=== PATIENT | female | born 1935 | race Caucasian/White ===

== ENCOUNTER 2016-07-04 10:23 | Inpatient (IN) | payer OTHER, BC ==
[2016-06-09 12:05] VITALS: BMI 26.0
--- NOTE | 2016-06-09 12:33 | PAT Medication Instructions ---
Service Date Jun 09, 2016. Current Home Medication List Ascorbic Acid (Vitamin C), 1 TAB PO QAM Hydrochlorothiazide (Hydrochlorothiazide), 1 TAB PO MON & THURS Lisinopril (Prinivil), 10 MG PO QAM Metoprolol Succ (Toprol Xl) (Toprol-Xl ), 100 MG PO QAM Rosuvastatin Calcium (Crestor), 5 MG PO QPM Medication Instructions For Your Scheduled Surgery - Hold the following medications the morning of surgery: Lisinopril (Prinivil), 10 MG PO QAM Hydrochlorothiazide (Hydrochlorothiazide), 1 TAB PO MON & THURS Ascorbic Acid (Vitamin C), 1 TAB PO QAM - Take the following medications the morning of surgery with a sip of water: Metoprolol Succ (Toprol Xl) (Toprol-Xl ), 100 MG PO QAM - Take the following medications as scheduled the night before surgery: Rosuvastatin Calcium (Crestor), 5 MG PO QPM If you have any questions please call us at [phone] or [phone] ( Danielle) or [phone]
[2016-06-09 13:14] LABS: BASO % 0.3 %; BASO ABS # 0.02 K/uL (0-0.2); COMPLETE YES; EOS % 0.8 %; HEMATOCRIT 40.2 % (37-47); LYMPH % 25.8 %; LYMPH ABS # 1.53 K/uL (1.2-3.4); MEAN CELL VOLUME 95.3 fL (80-100); MEAN CORPUSCULAR HEMOGLOBIN 32.2 pg (25-34); MEAN CORPUSCULAR HGB CONC 33.8 g/dl (32-36); MONO % 9.9 %; NEUT % 63.2 %; PLATELET COUNT 139 K/uL (130-400); RED BLOOD COUNT 4.22 M/uL (4.2-5.4); WHITE BLOOD COUNT 5.94 K/uL (4.8-10.8)
--- NOTE | 2016-06-09 13:15 | DIAGNOSTIC IMAGING REPORT ---
CHEST PREADMISSION(PA/LAT) CLINICAL HISTORY: PAT preoperative evaluation COMPARISON STUDY: No previous studies for comparison. FINDINGS: The bones soft tissues and hemidiaphragms are normal. The cardiomediastinal silhouette is normal. The lungs are clear. The pulmonary vasculature is normal. IMPRESSION: Negative chest. Electronically signed by: Marco A Anguiano M.D. 06/09/2016 1:13 PM Dictated Date/Time: 06/09/2016 1:13 PM
[2016-06-09 13:20] LABS: URINE APPEARANCE CLEAR (CLEAR); URINE BILIRUBIN NEG (NEG); URINE COLOR YELLOW; URINE NITRITE NEG (NEG); URINE SPECIFIC GRAVITY 1.019 (1.000-1.030); UROBILINOGEN NEG (NEG); ZZUR CULT IF INDIC CLEAN CATCH NO
[2016-06-09 13:24] LABS: PARTIAL THROMBOPLASTIN RATIO 1.1; PROTHROMBIN TIME (PATIENT) 10.4 SECONDS (9.0-12.0)
[2016-06-09 13:29] LABS: MANUAL MICROSCOPIC REQUIRED? NO; REVIEW REQ? NO
[2016-06-09 13:30] LABS: CALCIUM 9.4 mg/dl (8.5-10.1)
[2016-06-09 13:34] LABS: BUN/CREATININE RATIO 21.6 (10-20); CREATININE 0.74 mg/dl (0.60-1.20); POTASSIUM 4.1 mmol/L (3.5-5.1)
[2016-07-04] VITALS (7 sets, daily range): BP systolic 98–173; BP diastolic 56–82; PULSE 50–73; TEMP 36.4–36.7; O2SAT 93–100; Ht 170.2 cm; Wt 76.9 kg
[~2016-07-04] VITALS: Ht 170.2 cm; Wt 76.9 kg
[~2016-07-04 10:23] MED LIST: ACETAMINOPHEN 500 MG TAB PO SCH; ASCA500 PO; BUPIVACAINE 0.5 % 5 MG/1 ML PF 10ML VIAL ONE; CEFAZOLIN 2000 MG/60 ML D5W 60 ML IV SCH; CeleBREX 200 MG CAP PO SCH; DEXAMETHASONE 4 MG TAB PO SCH; FAMOTIDINE 20 MG TAB PO SCH; GABAPENTIN 300 MG CAP PO SCH; HYDR12.55 PO; LACTATED RINGER'S 1000ML 1,000 ML IV SCH; LACTATED RINGER'S 1000ML 500 ML IV ONE; LACTATED RINGER'S 1000ML IV SCH; LACTATED RINGER'S 500 ML IV SCH; LISI10TA PO; METO100T44 PO; METOCLOPRAMIDE HCL 10 MG TAB PO SCH; OXYCODONE HCL 10 MG TABCR (OXYCONTIN) PO SCH; POLYMYXIN B SULFATE 100,000 UNITS in NSS 100ML IR SCH; ROPIVACAINE 5MG/ML 30 ML 150 MG, BUPIVACAINE/EPINEPHR 0.5% MPF 30 ML, KETOROLAC TROMETH... INFIL SCH; ROSU5TAB PO; TRANEXAMIC ACID INJ 1,000 MG in SODIUM CHLORIDE 0.9% 100ML 100 ML IV SCH; VANCOMYCIN INJ 400 MG in NSS 100ML IR SCH
--- NOTE | 2016-07-04 11:29 | History and Physical ---
History & Physical Date July 04, 2016. Chief Complaint 80 year old female with a 6 year history of right knee pain. Rates pain 5/10 at worst. She is having more trouble with instability and lack of function rather than pain. She has had multiple injections, HEP, and Tylenol over the years that no longer provides relief. She has failed conservative treatment and is scheduled for right TKA. History of Present Illness The patient is a 80 year old female with complaints of a 6 year history of right knee pain. Rates pain 5/10 at worst. She is having more trouble with instability and lack of function rather than pain. She has had multiple injections, HEP, and Tylenol over the years that no longer provides relief. She has failed conservative treatment and is scheduled for right TKA. Past Medical/Surgical History HTN HYPERCHOLESTEROLEMIA ACID REFLUX OA HO BRCA DENIES CAD, DM, DVT Additional History Hepatic Disease: No Endocrine Disorder: No Kidney Disease: No Hypertension: Yes Heart Disease: No Bleeding Tendencies: No Infectious Diseases: No Allergies Coded Allergies: Lobster (Verified Allergy, Severe, anaphylactic per PCP note , 07/04/16) Shrimp (Verified Allergy, Severe, anaphylactic per PCP note , 07/04/16) Ezetimibe (Verified Adverse Reaction, Mild, diarrhea per PCP note , ) Simvastatin (Verified Adverse Reaction, Mild, myalgia per PCP note , ) Home Medications Scheduled Ascorbic Acid (Vitamin C), 1 TAB PO QAM Hydrochlorothiazide (Hydrochlorothiazide), 1 TAB PO MON & THURS Lisinopril (Prinivil), 10 MG PO QAM Metoprolol Succ (Toprol Xl) (Toprol-Xl ), 100 MG PO QAM Rosuvastatin Calcium (Crestor), 5 MG PO QPM Physical Examination Skin: warm/dry, no rash Eyes: normal inspection, EOMI, sclerae normal ENT: normal ENT inspection, pharynx normal Head: normocephalic, atraumatic Neck: supple, no adenopathy, trachea midline Respiratory/Chest: lungs clear, normal breath sounds, no respiratory distress Cardiovascular: regular rate, rhythm, no edema, no murmur Abdomen / GI: normal bowel sounds, non tender Back: normal inspection Extremities: normal inspection, normal range of motion, + pertinent finding ( MILD EFFUSION. NO DISTAL EDEMA. ROM 0-115, +1 LAXITY) Neurologic/Psych: no motor/sensory deficits, alert, normal reflexes, oriented x 3 Diagnosis DJD RIGHT KNEE Plan of Treatment PATIENT IS SCHEDULED TO PROCEED WITH RIGHT TKA WITH DR.C KAUFMAN. WILL PLAN ON [facility] HOME PHYSICAL THERAPY UPON DISCHARGE AND ASA 81 FOR DVT PROPHYLAXIS
[2016-07-04] MEDS ORDERED: MIDAZOLAM HCL 1 MG/ML 2ML VIAL ONE (11:49)
[2016-07-04] MEDS ORDERED: PROPOFOL IV EMULSION 10 MG/ML 20 ML VIAL IV ONE (11:49)
[2016-07-04] MEDS ORDERED: LIDOCAINE HCL 2% 2 ML VIAL (20MG/ML) ONE (11:49)
--- NOTE | 2016-07-04 12:12 | History & Physical Bridge Note ---
H&P Re-Evaluation Bridge Note: I have examined the patient, reviewed the History & Physical and in the interval since the performance of the History & Physical I have noted the following changes of clinical significance: No changes noted
[2016-07-04] MEDS ORDERED: FENTANYL CITRATE INJ 50 MCG/1 ML 2 ML VIAL IV PRN (12:15)
[2016-07-04] MEDS ORDERED: ATROPINE SULFATE 0.1 MG/ML 5ML SYR IV PRN (12:15)
[2016-07-04] MEDS ORDERED: EpHEDrine SULFATE INJ 50 MG/ML AMP IV PRN (12:15)
[2016-07-04] MEDS ORDERED: ONDANSETRON INJ 2 MG/ML 2 ML VIAL IV PRN ×2 (12:15→14:45)
[2016-07-04] MEDS ORDERED: ORTHO JOINT ANESTHETIC ONE (12:57)
[2016-07-04] MEDS ORDERED: BACITRACIN 50000 UNIT VIAL ONE (12:58)
[2016-07-04] MEDS ORDERED: POVIDONE-IODINE OP SOLN 30 ML BTL ONE (12:58)
[2016-07-04] MEDS ORDERED: BUPIVACAINE/EPINEPHRINE 0.25% 1:200,000 30 ML VIAL ONE (12:58)
[2016-07-04] MEDS: TRANEXAMIC ACID INJ 1,000 MG in SODIUM CHLORIDE 0.9% 100ML 100 ML IV SCH ×2 (13:03→17:14)
--- NOTE | 2016-07-04 14:38 | [facility] Post Operative Brief Note ---
Immediate Operative Summary Operative Date July 04, 2016. Pre-Operative Diagnosis Right knee degenerative joint disease Post-Operative Diagnosis same Procedure(s) Performed Right total knee arthroplasty, cemented Surgeon Dr. Rudy Bermudez Composite Science Teacher Surgeon(s) Luis Crespo PA-C Estimated Blood Loss 75 ML Findings DJD Specimens a. Right knee bone and tissue Complication(s) None Disposition Recovery Room / PACU
[2016-07-04] MEDS ORDERED: OXYCODONE HCL IR 5 MG TAB (IMMEDIATE RELEASE) PO PRN (14:45)
[2016-07-04] MEDS ORDERED: ALUMINUM/MAGNESIUM/SIMETH (MAALOX MAX) 30 ML UDC PO PRN (14:45)
[2016-07-04] MEDS ORDERED: KETOROLAC TROMETHAMINE 15 MG/ML VIAL IV. PRN (14:45)
[2016-07-04] MEDS ORDERED: ZOLPIDEM TARTRATE 5 MG TAB PO PRN (14:45)
[2016-07-04] MEDS ORDERED: SOD PHOSPHATE/SOD BIPHOSPHATE ENEMA 132 ML BTL PR PRN (14:45)
[2016-07-04] MEDS ORDERED: BISACODYL 10 MG SUPP PR PRN (14:45)
[2016-07-04] MEDS ORDERED: MAGNESIUM HYDROXIDE SUSP 30 ML UDC PO PRN (14:45)
[2016-07-04] MEDS ORDERED: DiphenhydrAMINE HCL 50 MG/ML VIAL IV PRN (14:45)
[2016-07-04] MEDS ORDERED: METOCLOPRAMIDE HCL INJ 5 MG/ML 2 ML VIAL IV PRN (14:45)
[2016-07-04] MEDS ORDERED: TRAMADOL HCL 50 MG TAB PO PRN (14:45)
[2016-07-04] MEDS ORDERED: MoRPHine SULFATE 2 MG/ML CARP IV PRN (14:45)
--- NOTE | 2016-07-04 15:30 | DIAGNOSTIC IMAGING REPORT ---
RIGHT KNEE 1 OR 2 VIEWS ROUTINE CLINICAL HISTORY: AP/LATERAL IN PACU RIGHT KNEE Right postoperative evaluation COMPARISON: None. DISCUSSION: Total right knee replacement. Prosthetic is in good position. Expected soft tissue postoperative change. Surgical drains are in position. IMPRESSION: Anatomic alignment status post total right knee replacement. Electronically signed by: Marco A Anguiano M.D. 07/04/2016 3:29 PM Dictated Date/Time: 07/04/2016 3:28 PM
--- NOTE | 2016-07-04 15:34 | Anesthesiology Progress Note ---
Anesthesia Post Op Note Date & Time July 04, 2016 at 15:34 Vital Signs Pain Intensity: 0 Vital Signs Past 12 Hours Date Time Temp Pulse Resp B/P Pulse Ox O2 Delivery O2 Flow Rate FiO2 07/04/16 15:25 53 14 119/59 97 Nasal Cannula 4 07/04/16 15:15 55 14 114/59 96 Nasal Cannula 4 07/04/16 15:10 37.1 57 14 114/60 97 Nasal Cannula 4 07/04/16 10:57 36.5 73 16 173/82 96 Room Air Notes Mental Status: alert / awake / arousable, participated in evaluation Pt Amnestic to Procedure: Yes Nausea / Vomiting: adequately controlled Pain: adequately controlled Airway Patency, RR, SpO2: stable & adequate BP & HR: stable & adequate Hydration State: stable & adequate Neuraxial Anesthesia: was administered, sensory block is resolving Anesthetic Complications: no major complications apparent
--- NOTE | 2016-07-04 16:49 | OPERATIVE REPORT ---
DATE OF OPERATION: 07/04/2016 PREOPERATIVE DIAGNOSIS: Degenerative arthritis, right knee. POSTOPERATIVE DIAGNOSIS: Same. PROCEDURE: Right total knee with patient matched implant. SURGEON: Dr. Bermudez. BUILDING ILLUMINATING ENGINEER: MARITO Cobos. ANESTHESIA: Spinal. BLOOD LOSS: 75 mL. REPLACEMENT FLUIDS: 1800 mL of crystalloid. DRAINS: Hemovac x2. CULTURES: None. COMPLICATIONS: None. COMPONENTS USED: [employer] Knee System: Femur size 5, tibia size 4 x 10, patella size 35. NOTE: Luis Baird was present and assisted throughout due to the complicated nature of this case. He helped with preparation and set up, first assisted throughout and personally closed the capsule, subcutaneous and skin layers and applied the postoperative dressing. DESCRIPTION: Following satisfactory spinal, the patient was supine. A tourniquet was placed but not inflated. The lower extremity was prepared with ChloraPrep and draped sterilely. Following a surgical time-out, a midline incision was made with a median parapatellar arthrotomy. The knee showed grade 4 changes throughout, but most severe in the medial compartment. The cruciate ligaments were excised. The patient matched femoral block was applied. Femoral distal rotation and resection were set and completed. The 4-in-1 block was used to finish preparation of the femur. The patient matched tibial block was applied. Tibial resection was completed. Patella was freehand cut and soft tissue balancing was completed. A trial reduction with the above-mentioned components showed good tensioning stability on the collateral ligaments, stable range of motion, and the patella tracked well. The trial components were removed, the capsule was prepared with the orthopedic cocktail and after irrigation, the components were cemented using Simplex G cement. While the cement was hardening, a Betadine soak was performed. After 3 minutes with the cement had hardened, the Betadine was irrigated, 2 drains were placed, the arthrotomy was closed with a running suture of 0 V-Loc and reinforced with 1 Vicryl interrupted. After irrigation, the subcutaneous tissues were closed with 2-0 Vicryl. The skin was closed with a running subcuticular stitch of 3-0 V-Loc. Dermabond and a dry dressing were applied. The patient was returned to her bed in stable condition. I attest to the content of the Intraoperative Record and any orders documented therein. Any exceptio ns are noted below.
[2016-07-04] MEDS: D5W AND 1/2NSS + 20MEQ KCL 1,000 ML IV SCH (17:22)
[2016-07-04] MEDS: ASPIRIN 81 MG ECTAB PO SCH (20:58)
[2016-07-04] MEDS ORDERED: ROSUVASTATIN CALCIUM 5 MG TAB PO SCH (21:00)
[2016-07-04] MEDS ORDERED: TRANEXAMIC ACID INJ 1,000 MG in SODIUM CHLORIDE 0.9% 100ML 100 ML IV SCH (21:00)
[2016-07-04] MEDS ORDERED: SENNA 8.6 MG TAB PO SCH (21:00)
[2016-07-04] MEDS: OXYCODONE HCL 10 MG TABCR (OXYCONTIN) PO SCH (21:01)
[2016-07-04] MEDS: ACETAMINOPHEN 500 MG TAB PO SCH (22:22)
[2016-07-04] MEDS: CEFAZOLIN IV 2,000 MG in DEXTROSE 5% 50ML 50 ML IV SCH (22:22)
[2016-07-05] MEDS: D5W AND 1/2NSS + 20MEQ KCL 1,000 ML IV SCH (03:03)
[2016-07-05 03:12] VITALS: BP 103/61; PULSE 56; TEMP 36.7; O2SAT 93
[2016-07-05] MEDS: CEFAZOLIN IV 2,000 MG in DEXTROSE 5% 50ML 50 ML IV SCH (05:36)
[2016-07-05] MEDS: ACETAMINOPHEN 500 MG TAB PO SCH (05:36)
[2016-07-05 06:23] LABS: HEMATOCRIT 33.8 % (37-47); MEAN CELL VOLUME 93.1 fL (80-100); MEAN CORPUSCULAR HEMOGLOBIN 30.9 pg (25-34); MEAN CORPUSCULAR HGB CONC 33.1 g/dl (32-36); MEAN PLATELET VOLUME 10.8 fL (7.4-10.4); PLATELET COUNT 118 K/uL (130-400); RED BLOOD COUNT 3.63 M/uL (4.2-5.4)
[2016-07-05 06:58] LABS: BUN/CREATININE RATIO 20.6 (10-20); CALCIUM 8.1 mg/dl (8.5-10.1); CREATININE 0.96 mg/dl (0.60-1.20); POTASSIUM 4.3 mmol/L (3.5-5.1)
--- NOTE | 2016-07-05 07:46 | Orthopedic Progress Note ---
Orthopedic Progress Note Date of Service July 05, 2016. Subjective Post OP Day: 1 (R TKA) Reports: feeling well, pain controlled w PO medications, Denies: SOB, chest pain , complaints, light headedness, nausea / vomiting Objective calves soft nontender, N/V intact, dressing C/D/I, A&O x3, toes mobile, hemovac drainage (200 LAST SHIFT ) Date Time Temp Pulse Resp B/P Pulse Ox O2 Delivery O2 Flow Rate FiO2 07/05/16 03:12 36.7 56 17 103/61 93 Room Air 07/05/16 00:15 Room Air 07/04/16 23:12 36.4 53 17 113/60 93 Room Air 07/04/16 18:50 36.5 55 16 125/67 100 Nasal Cannula 2.0 07/04/16 17:56 36.7 50 16 104/56 98 Nasal Cannula 2.0 07/04/16 16:50 36.4 50 16 109/63 98 Nasal Cannula 2.0 07/04/16 16:20 36.5 53 16 98/60 97 Nasal Cannula 2.0 07/04/16 15:50 36.7 53 16 114/64 98 Nasal Cannula 2.0 07/04/16 15:50 98 Nasal Cannula 2.0 07/04/16 15:50 98 Nasal Cannula 2.0 07/04/16 15:44 53 14 107/54 97 Nasal Cannula 3 07/04/16 15:35 36.4 53 14 107/53 97 Nasal Cannula 4 07/04/16 15:25 53 14 119/59 97 Nasal Cannula 4 07/04/16 15:15 55 14 114/59 96 Nasal Cannula 4 07/04/16 15:10 37.1 57 14 114/60 97 Nasal Cannula 4 07/04/16 10:57 36.5 73 16 173/82 96 Room Air Laboratory Results 24 Hours: Test 07/05/16 06:05 Hematocrit 33.8 % Hemoglobin 11.2 g/dL Assessment & Plan Assessment: POD 1 TKA Plan: HOME TODAY W ADVANTAGE LEAVE DRESSING AND DRAIN IN PLACE DUE TO DRAINAGE Inhouse Planning Pain Management: Celebrex, Oxycontin, PO Tylenol, Oxy IR DVT Prophylaxis: TEDs, SCDs, ASA Discharge Planning Discharge Planning: home with home health Pain Management: Celebrex, Oxycontin, PO Tylenol, Oxy IR DVT Prophylaxis: TEDs, ASA
--- NOTE | 2016-07-05 07:46 | Discharge Instructions ---
Discharge Instructions Date of Service July 05, 2016. Admission Reason for Admission: Right Knee Degenerative Arthritis Discharge Discharge Diagnosis / Problem: sp right total knee Discharge Goals Goal(s): Decrease discomfort, Improve function, Increase independence Activity Recommendations Activity Limitations: per Instructions/Follow-up section . Instructions / Follow-Up Instructions / Follow-Up ACTIVITY RECOMMENDATIONS: SELF CARE INSTRUCTIONS AFTER TOTAL KNEE REPLACEMENT A. You may need to continue a physical therapy program after discharge from the hospital. There are several options available to you. Your doctor will assist you in selecting the best one for you. 1. An out-patient facility 2 to 3 times a week for therapy or home therapy. 2. Continue working on all exercises taught to you in the hospital. Your goals should be to increase bending of your knee to 90 degrees and beyond and to fully straighten your knee. B. You may progress at your own pace from walking with a walker or crutches to a cane; then to no assistive devices. C. Make walking a part of your daily routine. Be up as much as comfortable with rest periods throughout the day. Rest with leg elevation is very important. Use the ice wrap frequently for the first 3-4 weeks. D. There are no restrictions on activities. You may ride in a car, shop, participate in rock wool insulator and all social activities. E. Wear the long elastic stockings (NINA hose) 20 hours a day for 2 weeks after surgery. They can be removed several times a day for laundering and for a bath. F. You may shower, no tub baths until cleared by your doctor. SPECIAL CARE INSTRUCTIONS: VERY IMPORTANT TO READ AND REVIEW A. There are a few signs you need to watch for after you are home. Call [facility] if you notice any of the followin. Increased severe knee pain. Some pain is expected especially when you exercise. 2. Increased swelling in your leg or knee; pain or swelling of the calf muscle in either lower leg. 3. Any fluid drainage from the incision. 4. Shortness of breath or chest pain. B. Please call [facility] at if you have any concerns or questions about your operation or recovery. The doctor or his nurse will return your call promptly. C. You must take antibiotics before dental work, bladder, bowel or other surgery. Your doctor will provide you with a permanent care to carry describing this precaution. IMPORTANT: * REMEMBER TO TAKE ASPIRIN, 81 MG, TWICE DAILY FOR 4 WEEKS UNLESS OTHERWISE DIRECTED. THIS IS YOUR BLOOD THINNER. * HIGH RISK PATIENTS MAY BE PRESCRIBED A STRONGER BLOOD THINNER. THIS WILL BE PROVIDED AT DISCHARGE. * CALL IF INCREASED PAIN, REDNESS, DRAINAGE OR FEVER GREATER THAT 101. * WEAR NINA HOSE 20 HOURS PER DAY FOR 2 WEEKS. DERMABOND Prineo- This is a mesh tape dressing that is covered with glue. It should remain in place until the incision is properly healed, usually 10-14 days. This dressing is designed to naturally slough off. You may trim the excess mesh tape as it peels off. Incision may be briefly wet in a shower. Dry immediately by blotting with a clean, dry towel. Do not bath or swim until instructed by your doctor. Do not scratch, rub, or pick at the dressing. Do not apply any topical ointments or lotions until dressing is completely removed and/or instructed by your doctor. There may be a small piece of suture material at one end of your incision. Do not pull or trim this. If it is bothersome or catching on clothing, you may cover it with a band-aid. FOLLOW UP VISIT: If appointment is not already scheduled: Please call [facility] to make a follow-up appointment for 2 weeks after your surgery at . Current Hospital Diet Patient's current hospital diet: Regular Diet Discharge Diet Recommended Diet: Regular Diet Procedures Procedures Performed: Right total knee arthroplasty, cemented Pending Studies Studies pending at discharge: no Medical Emergencies . Who to Call and When: Medical Emergencies: If at any time you feel your situation is an emergency, please call 911 immediately. . Non-Emergent Contact Non-Emergency issues call your: Surgeon . "Provider Documentation" section prepared by Jackelyn Howard. . VTE Core Measure Inpt VTE Proph given/why not?: Other Anticoagulation, T.Maxine Montague, SCD's [place] Drug Monitoring Program Search Results: patient reviewed within database, no issues identified
[2016-07-05] MEDS ORDERED: CLB200 PO (07:49)
[2016-07-05] MEDS ORDERED: ASPEC81 PO (07:49)
[2016-07-05] MEDS ORDERED: ONDA8TAB6 PO (07:49)
[2016-07-05] MEDS ORDERED: MORP-157 PO (07:49)
[2016-07-05] MEDS ORDERED: RXC5 PO (07:49)
[2016-07-05] MEDS ORDERED: ACET-1138 PO (07:49)
[2016-07-05] MEDS ORDERED: SNK PO (07:49)
[2016-07-05 07:56] VITALS: BP 140/78; PULSE 54; TEMP 36.5; O2SAT 94
[2016-07-05 07:59] VITALS: O2SAT 94
[2016-07-05] MEDS: ASPIRIN 81 MG ECTAB PO SCH (08:36)
[2016-07-05] MEDS: OXYCODONE HCL 10 MG TABCR (OXYCONTIN) PO SCH (08:39)
[2016-07-05] MEDS ORDERED: PANTOprazole SOD 40 MG TAB PO SCH (09:00)
[2016-07-05] MEDS ORDERED: ASCORBIC ACID 500 MG TAB PO SCH (09:00)
[2016-07-05] MEDS ORDERED: METOPROLOL SUCC 50MG EXT REL TAB PO SCH (09:00)
[2016-07-05] MEDS ORDERED: MULTIVITAMIN TAB PO SCH (09:00)
[2016-07-05] MEDS ORDERED: LISINOPRIL 10 MG TAB PO SCH (09:00)
--- NOTE | 2016-07-05 10:48 | Anesthesiology Progress Note ---
Anesthesia Post Op Note Date & Time July 05, 2016 at 10:48 Vital Signs Pain Intensity: 0.0 Vital Signs Past 12 Hours Date Time Temp Pulse Resp B/P Pulse Ox O2 Delivery O2 Flow Rate FiO2 07/05/16 07:59 94 Room Air 07/05/16 07:56 36.5 54 18 140/78 94 Room Air 07/05/16 07:16 Room Air 07/05/16 03:12 36.7 56 17 103/61 93 Room Air 07/05/16 00:15 Room Air 07/04/16 23:12 36.4 53 17 113/60 93 Room Air Notes Mental Status: alert / awake / arousable, participated in evaluation Pt Amnestic to Procedure: Yes Nausea / Vomiting: adequately controlled Pain: adequately controlled Airway Patency, RR, SpO2: stable & adequate BP & HR: stable & adequate Hydration State: stable & adequate Neuraxial Anesthesia: was administered, sensory block resolved Anesthetic Complications: no major complications apparent
[2016-07-05 10:59] VITALS: BP 140/78; PULSE 54; TEMP 36.5; O2SAT 94
[2016-07-05 11:38] VITALS: BP 110/58; PULSE 57; TEMP 36.7; O2SAT 96
[2016-07-05 11:41] VITALS: O2SAT 96
[2016-07-07] MEDS ORDERED: CeleBREX 200 MG CAP PO SCH (08:00)
[2016-07-07] MEDS ORDERED: HYDROCHLOROTHIAZIDE 25 MG TAB PO SCH (09:00)
--- NOTE | 2016-07-08 15:02 | DISCHARGE SUMMARY ---
DISCHARGE DIAGNOSIS: Degenerative joint disease, right knee. SECONDARY DIAGNOSES: Hypertension, hypercholesterolemia, gastroesophageal reflux disease, history of breast cancer, osteoarthritis. CONSULTS: None. COMPLICATIONS: None. PROCEDURES: Right total knee arthroplasty performed by Dr. Franklyn Bermudez on 07/04/2016. BRIEF HISTORY: As dictated in history and physical. HOSPITAL SUMMARY: The patient was admitted on the above date and had the above-noted surgery performed which she tolerated well. On her first postoperative day, she was feeling well and pain was controlled. She had no complaints. Calves were soft, nontender, neurovascularly intact. Dressings clean, dry and intact. Toes were mobile. Vital signs were stable. She was afebrile. Hemoglobin was 11.2 and she was started on physical therapy protocol and continued on DVT prophylaxis and pain management. She progressed with her physical therapy and was remaining stable and it was felt that she could be discharged to home. For further review, please see chart. LAB AND X-RAY DATA: As per chart. DISCHARGE INSTRUCTIONS: The patient was discharged to home in satisfactory condition on 07/05/2016. DIET: Regular. ACTIVITY: Follow TK instruction sheets and special care instructions as noted and follow up with Dr. Rudy Bermudez in 2 weeks. The patient to call for appointment if one has not been made for you. DISCHARGE MEDICATIONS: Acetaminophen 1000 mg p.o. q. 8 hours, aspirin 81 mg p.o. b.i.d., Celebrex 200 mg p.o. daily, MS Contin 15 mg p.o. q. 12 hours, Zofran 8 mg p.o. q. 8 hours p.r.n. nausea, oxycodone 5-10 mg p.o. q. 4 hours p.r.n., senna 17.2 mg p.o. at bedtime. Resume vitamin C 1 tab p.o. q.a.m., hydrochlorothiazide 12.5 mg p.o. Monday and , lisinopril 10 mg p.o. q.a.m., metoprolol 100 mg p.o. q.a.m. and Crestor 5 mg p.o. q.p.m.
== END 2016-07-05 13:04 | disposition home health service (06) | DRG 470 ==
LOC: ENRESERVDT → ENRESERVTM → C.ACU 10:23 → C.3E 12:00
PROVIDERS: ADMIT Orthopaedic Surgery; ATTEND Orthopaedic Surgery
PROC: 0SRC0J9 Replacement of Right Knee Joint with Synthetic Substitute, Cemented, Open Approach (ICD-10-PCS; principal; 2016-07-04 13:15)
DX: M17.11 Unilateral primary osteoarthritis, right knee (principal); M25.461 Effusion, right knee; I10 Essential (primary) hypertension; E78.00 Pure hypercholesterolemia, unspecified; Z79.899 Other long term (current) drug therapy